=== PATIENT | female | born 1965 ===

== ENCOUNTER 2018-03-04 09:04 | Emergency (ER) | payer OTHER ==
[~2018-03-04] VITALS: Ht 165.1 cm; Wt 99.8 kg
[2018-03-04] MEDS ORDERED: WELLBUTRIN XL300 MG (09:35)
[2018-03-04] MEDS ORDERED: CLONAZEPAM0.5 M1 (09:35)
[2018-03-04] MEDS ORDERED: ULTRAM50 MG PO (15:44)
== END 2018-03-04 15:57 | disposition home or self-care (01) ==
LOC: ER 09:04
DX: R10.2 Pelvic and perineal pain (principal)